=== PATIENT | female | born 1995 | race Caucasian/White ===

== ENCOUNTER → 2020-07-18 | Outpatient (CLI) | payer BC | LOC: DIA.ED 13:34 | DX: O24.419 Gestational diabetes mellitus in pregnancy, unspecified control (principal) | CPT/HCPCS: G0108 ==

== ENCOUNTER → 2020-07-18 | Outpatient (CLI) | payer BC | LOC: DIA.ED 09:29 | DX: O24.419 Gestational diabetes mellitus in pregnancy, unspecified control (principal) | CPT/HCPCS: G0108 ==

== ENCOUNTER → 2020-08-15 | Outpatient (CLI) | payer BC | LOC: DIA.ED 08:00 | DX: O24.419 Gestational diabetes mellitus in pregnancy, unspecified control (principal) | CPT/HCPCS: G0108 ==

== ENCOUNTER 2020-08-28 19:52 | Inpatient (IN) | payer BC ==
[2020-08-28] VITALS (11 sets, daily range): BP systolic 100–126; BP diastolic 57–82; PULSE 73–97; TEMP 97.9
[~2020-08-28] VITALS: Ht 174 cm; Wt 114.5 kg
--- NOTE | 2020-08-28 19:30 | NUR ---
Pt arrived on unit esccorted by and with complaints of SROM. Pt denies contractions or vaginal bleeding and reports normal movement. EFM and toco monitors started. SVE by this RN with positive amnio-trace. Vital signs WNL. Pt requesting to be treated with IV abx therapy as if she is GBS positive due to family history of missed GBS while . Information reviewed with Dr. Cummings. Orders for labor admission recieved.
[2020-08-28] MEDS ORDERED: PRENATAL (21:48)
[2020-08-28 22:06] LABS: BASO % 0.3 % (0.0-2.0); EOS # 0.1 (0.0-0.7); EOS % 0.7 % (0-4.0); GRAN # 8.8 (1.4-6.5); GRAN % 73.5 % (42.2-75.2); HEMOGLOBIN 11.3 g/dl (12.5-16.0); LYMPH # 2.4 (1.2-3.4); LYMPH % 19.8 % (20.0-51.0); MEAN CELL VOLUME 87 fl (80.0-100.0); MEAN CORPUSCULAR HEMOGLOBIN 29 pg (27.0-31.0); MEAN CORPUSCULAR HGB CONC 33 g/dl (33.0-37.0); MEAN PLATELET VOLUME 10.3 fl (7.4-10.4); MONO # 0.6 (0.1-0.6); MONO % 5.4 % (1.7-9.3); PLATELET COUNT 285 K/mm3 (130-400); RED BLOOD COUNT 3.88 M/mm3 (4.10-5.30)
[2020-08-28 22:07] LABS: HEMATOCRIT 33.9 % (37.0-47.0)
[2020-08-29] VITALS (51 sets, daily range): BP systolic 90–135; BP diastolic 44–78; PULSE 67–118; TEMP 97.9–98.6
--- NOTE | 2020-08-29 01:20 | NUR ---
0120- Pt sitting up on the edge of the bed for epidural placement. SPO2 monitor started. 0125- ALEXANDRIA Oquendo at the bedside for epidural placement. Time out completed. EFM tracing maternal HR as coorelates with SPO2 monitor. 0132- Test done done per ALEXANDRIA Oquendo. See anesthesia records for details. 0140- Assisted pt back to left lateral position. EFM and toco monitors adjusted.
--- NOTE | 2020-08-29 02:15 | NUR ---
Difficult tracing contractions. Frequent attempt to adjust toco monitors. Pt unable to report due to epidural.
--- NOTE | 2020-08-29 02:45 | NUR ---
Difficult tracing contractions. Frequent attempts to adjust toco monitor. Pt unable to report due to epidural.
--- NOTE | 2020-08-29 03:15 | NUR ---
Difficult to trace contractions. Frequent attempts to adjust toco monitor.
--- NOTE | 2020-08-29 05:45 | NUR ---
Difficult tracing contractions. Frequent attempts to adjust toco monitor.
--- NOTE | 2020-08-29 08:10 | NUR ---
Pitocin shut off upon SVE confirmation
--- NOTE | 2020-08-29 08:10 | NUR ---
Reccurent variables noted. RN at bedside for SVE and position change. Pt states "feeling pressure." SVE per this RN complete with buttocks presenting. Dr. Francois on unit. RN requested physician to bedside. SVE and bedside US per provider confirms breech position. Dr. Cummings and Dr. Cohen notified and requested to delivery. Anesthesia notified. Pt prepped for OR. 0820-Taken off monitors to main OR. 0824-Pt prepped on delivery table. FHR 160s with doppler. 0836-FHR noted in the 130s with doppler.
--- NOTE | 2020-08-29 15:09 | NUR ---
Pt refuses COVID swab
[2020-08-30 00:09] VITALS: BP 111/57; PULSE 97; TEMP 98.6
[2020-08-30 04:09] VITALS: BP 106/46; PULSE 81; TEMP 98.6
[2020-08-30 07:20] LABS: HEMATOCRIT 25.5 % (37.0-47.0); HEMOGLOBIN 8.4 g/dl (12.5-16.0)
[2020-08-30 07:40] VITALS: BP 104/54; PULSE 81; TEMP 98.3
[2020-08-30] MEDS ORDERED: PERCOCET 325 MG1 TA2 PO (08:55)
[2020-08-30] MEDS ORDERED: IBU600 MG PO (08:55)
--- NOTE | 2020-08-30 09:07 | NUR ---
Initial visit; Parents thanked [employer] for offering congratulations and God's blessings for the of their daughter. [employer] thanked family for choosing [facility].
[2020-08-30 16:48] VITALS: BP 122/65; PULSE 75; TEMP 98.3
[2020-08-30 21:15] VITALS: BP 115/54; PULSE 95; TEMP 97.6
[2020-08-31 06:40] VITALS: BP 122/62; PULSE 88; TEMP 98.7
== END 2020-08-31 12:45 | disposition home or self-care (01) | DRG 788 ==
LOC: LDRO 19:52 → LDR 19:56 → EDSTATUS 19:56 → LDRO 19:57 → LDR 19:58 → OB 08-29 11:30
PROVIDERS: ADMIT Obstetrics & Gynecology
PROC: 10D00Z1 Extraction of Products of Conception, Low, Open Approach (ICD-10-PCS; principal; 2020-08-28)
DX: O24.420 Gestational diabetes mellitus in childbirth, diet controlled (principal); O32.1XX0 Maternal care for breech presentation, not applicable or unspecified; Z3A.37 37 weeks gestation of pregnancy; Z37.0 Single live birth; O69.9XX0 Labor and delivery complicated by cord complication, unspecified, not applicable or unspecified
CPT/HCPCS: J0171; J0690; J1885; J2370; J2400; J2405; J2540; J2590; J2795; J7120